=== PATIENT | male | born 1950 | race Caucasian/White ===

== ENCOUNTER → 2017-01-07 | Day surgery (SDC) | payer MEDICARE, OTHER ==
[~2017-01-07] MED LIST: ALLOPURINOL300 MG PO; AMARYL2 MG PO; BYDUREON2 MG IJ; FLEXERIL10 MG PO; FUROSEMIDE20 MG PO; GLUCOPHAGE1000 MG PO; HUMIRA40 MG/0.8 SQ; LOPRESSOR50 MG PO; LOVAZA1 GM PO; MAGOX 400400 MG PO; OMEPRAZOLE20 MG PO; SPIRONOLACTONE50 MG PO; SYNTHROID88 MCG PO; XIFAXAN550 MG PO
[2017-01-07 08:22] LABS: INR 1.48 (0.9-1.2); PROTHROMBIN TIME 17.4 SECONDS (11.7-14.0)
[2017-01-07 08:29] LABS: ALBUMIN 3.9 g/dL (3.4-4.8); BILIRUBIN - TOTAL 2.2 mg/dL (0.1-1.0); CREATININE 1.2 mg/dL (0.7-1.2); GLOBULIN (CALCULATION) 3.6 g/dL (2.2-4.2); POTASSIUM 4.1 mmol/L (3.5-5.1); TOTAL PROTEIN 7.5 g/dL (6.4-8.3)
== END | disposition home or self-care (01) ==
LOC: FAS 12-10 09:00
PROVIDERS: Internal Medicine
DX: K57.30 Diverticulosis of large intestine without perforation or abscess without bleeding (principal); K21.9 Gastro-esophageal reflux disease without esophagitis; K70.30 Alcoholic cirrhosis of liver without ascites; I10 Essential (primary) hypertension; E83.119 Hemochromatosis, unspecified; E03.9 Hypothyroidism, unspecified; E78.00 Pure hypercholesterolemia, unspecified; E11.9 Type 2 diabetes mellitus without complications; F41.9 Anxiety disorder, unspecified; F17.210 Nicotine dependence, cigarettes, uncomplicated; M10.9 Gout, unspecified; Z85.828 Personal history of other malignant neoplasm of skin; Z87.440 Personal history of urinary (tract) infections; Z79.4 Long term (current) use of insulin; Z79.899 Other long term (current) drug therapy; Z98.890 Other specified postprocedural states
CPT/HCPCS: 36415; 80053; 85610; J2704

== ENCOUNTER 2017-03-04 17:07 | Emergency (ER) | payer MEDICARE, OTHER ==
[2017-03-04 17:47] LABS: BASOPHIL 0.3 % (0-2); HCT 32.3 % (42.0-52.0); HGB 11.2 g/dl (13.2-18.0); LYMPHOCYTE 11.6 % (15-48); MCH 33.7 pg (25.0-31.0); MCHC 34.7 g/dL (32.0-36.0); MCV 97.3 fL (78.0-100.0); MONOCYTE 7.1 % (0-12); MPV 9.3 fL (6.0-9.5); RBC 3.32 M/uL (4.70-6.00); RDW 15.6 % (11.5-14.0)
[2017-03-04 17:48] LABS: INR 1.49 (0.9-1.2); PROTHROMBIN TIME 17.5 SECONDS (11.7-14.0); PTT 31.7 SECONDS (23.2-31.4)
[2017-03-04 18:01] LABS: ALBUMIN 3.5 g/dL (3.4-4.8); BILIRUBIN - TOTAL 2.4 mg/dL (0.1-1.0); CREATININE 1.1 mg/dL (0.7-1.2); GLOBULIN (CALCULATION) 3.6 g/dL (2.2-4.2); POTASSIUM 4.3 mmol/L (3.5-5.1); TOTAL PROTEIN 7.1 g/dL (6.4-8.3)
[2017-03-04 18:02] LABS: MYOGLOBIN 1845 ng/mL (26-65); TROPONIN T < 0.010 ng/mL
[2017-03-04 18:04] LABS: CKMB 6.97 ng/mL (0.97-4.94)
[2017-03-04 18:14] LABS: PLT 47 K/uL (150-400)
[2017-03-04 18:55] LABS: CLARITY CLEAR (CLEAR); COLOR STRAW (YELLOW); PROTEIN TRACE (LOW) mg/dL (NEGATIVE); pH 7.5 (5.0-9.0)
[2017-03-04 18:56] LABS: BILIRUBIN NEGATIVE (NEGATIVE); BLOOD NEGATIVE Ery/uL (NEGATIVE); GLUCOSE (U) NORMAL (NORMAL); KETONE (U) NEGATIVE (NEGATIVE); LEUKOCYTES NEGATIVE Leu/uL (NEGATIVE); NITRITE NEGATIVE (NEGATIVE); SQUAMOUS EPITHELIAL CELLS RARE; URINARY RBC RARE; UROBILINOGEN 0.2 mg/dL (0.2-1.0)
[2017-03-04 18:59] LABS: AMPHETAMINES NEGATIVE (NEGATIVE); BARBITURATES NEGATIVE (NEGATIVE); BENZODIAZEPINES NEGATIVE (NEGATIVE); COCAINE NEGATIVE (NEGATIVE); MARIJUANA (THC) NEGATIVE (NEGATIVE)
[2017-03-04 19:00] LABS: METHADONE NEGATIVE (NEGATIVE); TRICYCLIC ANTIDEPRESSANT NEGATIVE (NEGATIVE)
== END 2017-03-05 00:11 | disposition other institution (70) ==
LOC: FER 17:07
PROVIDERS: Emergency Medicine
DX: I85.01 Esophageal varices with bleeding (principal); K72.90 Hepatic failure, unspecified without coma; I11.9 Hypertensive heart disease without heart failure; E11.9 Type 2 diabetes mellitus without complications; K74.60 Unspecified cirrhosis of liver; F17.210 Nicotine dependence, cigarettes, uncomplicated
CPT/HCPCS: 36415; 36600; 70450; 71010; 80053; 80305; 81001; 82140; 82550; 82553; 82803; 83605; 83874; 84484; 85025; 85610; 85730; 93005; C9113